=== PATIENT | female | born 2000 | race Caucasian/White ===

== ENCOUNTER 2022-01-26 20:17 | Emergency (ER) | payer MEDICAID, SELFPAY ==
[2022-01-26 20:24] VITALS: BP 134/65; PULSE 87; RESP 16; TEMP 36.7; O2SAT 98
--- NOTE | 2022-01-26 20:24 | DI.RAD.S_ITS ---
PROCEDURE: XR WRIST RT MIN 3V INDICATIONS: slammed it in a car door TECHNIQUE: 4 views of the wrist were acquired. COMPARISON: None. FINDINGS: Bones: No fractures or dislocations. No suspicious bony lesions. Scaphoid view: Scaphoid is intact. Soft tissues: No suspicious soft tissue calcifications. IMPRESSION: No wrist fracture or dislocation. No gross soft tissue abnormalities. Dictated by: Moreno Teixeira M.D. on 01/26/2022 at 20:41 Approved by: Moreno Teixeira M.D. on 01/26/2022 at 20:41
--- NOTE | 2022-01-26 20:28 | ED.UPPEXIN ---
HPI - Extremity Injury (Upper) General Chief Complaint: Extremity Injury, Upper Stated Complaint: Caught left wrist in car door Time Seen by Provider: 01/26/22 20:25 Source: patient Mode of arrival: Ambulatory History of Present Illness HPI narrative: 21-year-old female nonsmoker with noncontributory medical history presents with a chief complaint of an accidental injury to her right wrist last night. She states that she accidentally slammed in a car door now has pain and swelling. She denies any numbness, tingling or weakness. She denies any elbow or shoulder pain. She has increasing pain with range of motion and improvement with rest. She is otherwise well and free of complaint. Related Data Home Medications Medication Instructions Recorded Confirmed sertraline 100 mg tablet 100 mg PO DAILY 08/31/21 08/31/21 Previous Rx's Medication Instructions Recorded cyclobenzaprine 5 mg tablet 5 mg PO TID PRN muscle spasm #14 08/31/21 tabs Allergies Allergy/AdvReac Type Severity Reaction Status Date / Time No Known Drug Allergies Allergy Unverified 08/31/21 09:19 Review of Systems Review of Systems Narrative: GENERAL: Denies chills, fatigue, malaise, fever, sweats. HEENT: Denies sinus pain, ear pain, sore throat, difficulty swallowing, dizziness. RESPIRATORY: Denies dyspnea, cough, wheezing, hemoptysis, sputum. CARDIOVASCULAR: Denies chest pain, palpitations, orthopnea, edema, GASTROINTESTINAL: Denies nausea, vomiting, abdominal pain, diarrhea, constipation, melena. : Denies dysuria, frequency, incontinence, hematuria, urinary retention. MUSCULOSKELETAL:see HPI SKIN: Denies rash, skin lesions, or other NEUROLOGIC: Denies weakness, headache, numbness, change in speech, confusion, seizures, incoordination. PSYCHIATRIC: No concerning psychosocial issues. 12 point review of systems is negative except for those stated above Exam Narrative Exam Narrative: GEN: AOx3 and in mild distress EYES: Pupils are equal, round, and reactive to light and accommodation. Extraoccular muscles are intact bilaterally. There is no subconjunctival hemorrhage or exudate. CHEST: Lungs are clear to auscultation bilaterally and free of wheezes, rales, or rhonchi. Heart rate is regular rhythm, there are no murmurs, clicks, rubs, or gallops. There is no chest wall tenderness. ABD: Abdomen is soft and nontender. There is no guarding or rebound. Bowel sounds are normal in all 4 quadrants. There is no mass or organomegaly. EXT: Full but painful range of motion of right wrist with some ecchymosis overlying the distal radius, this is closed, isolated and neurovascularly intact. No obvious or significant pain over the anatomic snuffbox or pain with axial loading of the thumb SKIN: Warm, pink, and dry. No erythema or rash Initial Vital Signs Initial Vital Signs: Vital Signs Temperature 98.1 F 01/26/22 20:24 Pulse Rate 87 01/26/22 20:24 Respiratory Rate 16 01/26/22 20:24 Blood Pressure 134/65 01/26/22 20:24 Pulse Oximetry 98 01/26/22 20:24 Oxygen Delivery Method 01/26/22 20:24 Procedures Orthopedic Splinting/Casting Injury #1: Side: right Upper Extremity Injury Location: wrist Upper Extremity Immobilizer: wrist splint and thumb spica Post splinting neuro exam: intact Post splinting vascular exam: intact Placed by: Nursing Course Orders Ordered: ED Orders 01/26/22 20:24 XR wrist RT min 3V Stat Vital Signs Vital signs: Vital Signs - 8 hr 01/26/22 20:24 Temperature 98.1 F Pulse Rate 87 Respiratory Rate 16 Blood Pressure 134/65 Pulse Oximetry 98 Oxygen Delivery Method Room Air MDM - Extremity Injury (Upper) Imaging Data Extremity x-ray #1: Radiologist's Impression: [address] [address] XRay Report Signed Patient: Dallin Monroy MR#: [id number] : 2000 Acct:[id number] Age/Sex: 21 / F Date of Service: 01/26/22 Loc: ED Accession Number: [id number] ?? Procedure: XR wrist RT min 3V Ordering Provider: Maykel Gan D.O. PROCEDURE:? XR WRIST RT MIN 3V ? INDICATIONS: slammed it in a car door ? TECHNIQUE:? 4 views of the wrist were acquired.? ? COMPARISON:? None. ? FINDINGS:? ? Bones:? No fractures or dislocations.? No suspicious bony lesions.? ? Scaphoid view:? Scaphoid is intact. ? Soft tissues:? No suspicious soft tissue calcifications.? ? IMPRESSION:? No wrist fracture or dislocation.? No gross soft tissue abnormalities. ? ? Dictated by: Moreno Teixeira M.D. on 01/26/2022 at 20:41 ? ? Approved by: Moreno Teixeira M.D. on 01/26/2022 at 20:41 ? Discharge Plan Departure Patient Disposition: Home Clinical Impression: Contusion of dorsum of wrist Instructions: DI for Contusion Activity Restrictions/Additional Instructions: *You have been diagnosed with [contusion of right wrist. As we discussed your history and physical exam are reassuring and x-ray shows no evidence of fracture or dislocation] *What to do: *Please continue to take your regular medications as directed. [ ] New medication prescriptions sent to your pharmacy: [ ] [ ] New medication written as a paper prescription [ x] No new medications given *Please follow up with your primary care provider in 2-3 days, call for an appointment. Let them know you were seen in the Emergency Department and that we ask that you be seen in follow up. We will electronically transmit a record of today's note if your PCP is in our system *If you do not have a primary care provider please contact the [facility] Resource line at [phone]. They will ask some questions about your medical history and help get you set up with a doctor in the community. *Return to Emergency Department if you should have any new, worsening or concerning symptoms, such as [fever greater than 101 F, shaking chills, worsening pain, persistent vomiting or other bothersome symptoms] Prescriptions: No Action sertraline 100 mg tablet 100 mg PO DAILY cyclobenzaprine 5 mg tablet 5 mg PO TID PRN (Reason: muscle spasm) Qty: 14 0RF Visit Report Forms: Patient Portal/API
== END 2022-01-26 21:27 | disposition home or self-care (01) ==
LOC: ED 21:07
PROVIDERS: Emergency Provider Emergency Medicine
DX: S60.211A Contusion of right wrist, initial encounter (principal); W23.0XXA Caught, crushed, jammed, or pinched between moving objects, initial encounter
CPT/HCPCS: 73110; 99282; 99283

== ENCOUNTER → 2024-09-06 10:00 | Oncology outpatient (ONC) | payer OTHER, SELFPAY ==
[2024-08-22 10:12] VITALS: BP 107/69; PULSE 70; RESP 18; TEMP 37.2; O2SAT 99
[2024-08-22] MEDS: IRON SUCROSE 200 MG in SODIUM CHLORIDE 0.9% 100 ML 220 MG IV (10:34)
[2024-08-22 11:56] VITALS: BP 108/70; PULSE 63; RESP 18; TEMP 36.7; O2SAT 98
[2024-08-24 10:43] VITALS: BP 109/60; PULSE 68; RESP 18; TEMP 36.9; O2SAT 99
[2024-08-24] MEDS: IRON SUCROSE 200 MG in SODIUM CHLORIDE 0.9% 100 ML 220 MG IV (10:52)
[2024-08-24 12:01] VITALS: BP 100/56; PULSE 54; RESP 18; TEMP 36.6; O2SAT 99
[2024-08-29 10:04] VITALS: BP 107/71; PULSE 59; RESP 18; TEMP 36.6; O2SAT 99
[2024-08-29] MEDS: IRON SUCROSE 200 MG in SODIUM CHLORIDE 0.9% 100 ML 220 MG IV (10:45)
[2024-08-29 11:50] VITALS: BP 106/70; PULSE 59; RESP 18; TEMP 36.6; O2SAT 99
[2024-08-31 15:12] VITALS: BP 129/78; PULSE 90; RESP 16; TEMP 37.2; O2SAT 99
--- NOTE | 2024-08-31 15:25 | PC.NURSE ---
1510 Patient here for Iron infusion. Reports last infusion Thursday08/29/24 she had a few IV attempts then final IV placed Right Hand - relays it felt tight and a bit tender during infusion, denied redness, or swelling; reports infusion was slowed down. It was somewhat improving over last couple days, most improved last night 08/30/24 but it is roll slicing machine tender/painful over site of PIV and around wrist inner and outer wrist up forearm to elbow. No redness, no swelling, no warmth noted. Small bruise to site that PIV was placed noted but no swelling or redness. Pulses 2+ Right Radial & CMS intact. Does report more pain/tenderness to make a fist but has full ROM and strength. Sensation intact. 1520 PIV placed Left outer forearm. Flushes easily, with good blood return. Patient did have episode of appearing pale but A&O x 4 with IV placement. Given Cranberry juice and color quickly returned to pink/baseline. 1530 Patient ambulated independently to restroom. Steady gate.
[2024-08-31] MEDS: IRON SUCROSE 200 MG in SODIUM CHLORIDE 0.9% 100 ML 110 MG IV (15:35)
--- NOTE | 2024-08-31 15:46 | PC.NURSE ---
infusion running over 1 hour, as better tolerated, decreased headaches after iron infusion. Patient reports she is drinking more water as well. Denies headache after Mondays08/29/24 iron infusion.
[2024-08-31 16:53] VITALS: BP 109/71; PULSE 80; RESP 16; O2SAT 100
[2024-09-06 10:11] VITALS: BP 109/66; PULSE 89; RESP 16; TEMP 36.4; O2SAT 97
[2024-09-06] MEDS: IRON SUCROSE 200 MG in SODIUM CHLORIDE 0.9% 100 ML 220 MG IV (10:33)
--- NOTE | 2024-09-06 11:15 | PC.NURSE ---
Patient given written education on Dietary Sources of Iron & Anemia: Dietary Sources of Iron - UpToDate & Best Foods to Eat If You Have Anemia (And What to Avoid) - [employer], verbalized understanding of importance of vitamin C in iron absorption, possible interactions/interference in absorption due to other meds/supplements/or dairy and tannin rich foods.
[2024-09-06 11:37] VITALS: BP 109/68; PULSE 78; RESP 16; O2SAT 98
== END ==
PROVIDERS: Referring Provider Nurse Practitioner Family; Visit Provider Nurse Practitioner Family
DX: D50.9 Iron deficiency anemia, unspecified (principal)
CPT/HCPCS: 96365; J1756